=== PATIENT | female | born 1980 | race African-American/Black ===

== ENCOUNTER 2016-12-12 17:04 | Emergency (ER) | payer OTHER ==
[~2016-12-12] VITALS: Ht 160 cm; Wt 79.4 kg
[2016-12-12] MEDS ORDERED: ACETAMINOPHEN 325 MG TAB PO ONE (18:30)
[2016-12-12] MEDS ORDERED: cefTRIAXone SOD 1,000 MG VL IM ONE (18:45)
[2016-12-12] MEDS ORDERED: LIDOCAINE 1% HCL (LOCAL ANESTH.) INJ 20ML MDV ONE (20:05)
[2016-12-12] MEDS ORDERED: LIDOCAINE 1% HCL (LOCAL ANESTH.) INJ 20ML MDV IJ ONE (20:30)
[2016-12-12 20:50] VITALS: BP 144/72
== END 2016-12-12 21:09 ==
LOC: ER 17:09
DX: L03.115 Cellulitis of right lower limb (principal)
CPT/HCPCS: 81025; 93971; 96372; 99284; J0696; J2001

== ENCOUNTER 2017-10-26 16:57 | Inpatient (IN) | payer OTHER ==
[~2017-10-26] VITALS: Ht 160 cm; Wt 77.4 kg
[2017-10-26 17:45] LABS: Urine Bacteria FEW /hpf (None Seen); Urine Blood Negative /uL (Negative); Urine Mucus FEW (None Seen); Urine Specific Gravity 1.016 (1.001-1.035); Urine WBC <1 /hpf (0 - 5)
[2017-10-26 17:56] LABS: Basophils # (auto) 0.1 uL; Basophils % (auto) 1.3 % (0.0-2.0); Eosinophils # (auto) 0 uL; Eosinophils % (auto) 0.8 % (0.0-7.0); Hematocrit 40.3 % (36.0-46.0); Hemoglobin 13.8 g/dL (12.2-16.2); Lymphocytes # (auto) 1.5 uL; Lymphocytes % (auto) 34.7 % (10.0-50.0); Mean Corpuscular Hemoglobin 31.3 pg (28.0-32.0); Mean Corpuscular Hgb Conc. 34.3 g/dL (32.0-36.0); Mean Corpuscular Volume 91.4 fL (80.0-100.0); Monocytes # (auto) 0.2 uL; Monocytes % (auto) 5.8 % (0.0-12.0); Neutrophils # (auto) 2.4 uL; Neutrophils % (auto) 57.4 % (37.0-80.0); Nucleated Red Blood Cells % 0.1 %; Platelet Count (auto) 246 10^3/uL (140-450); Red Blood Cells 4.41 10^6/uL (4.0-5.20); Red Cell Distribution Width 14.2 % (11.8-14.3); White Blood Cell 4.3 10^3/uL (4.4-10.8)
[2017-10-26 18:16] LABS: Albumin 3.8 g/dL (3.4-5.0); BUN/Creatinine Ratio 8.8; Bilirubin, Total 4.4 mg/dL (0.2-1.0); Calcium 9.1 mg/dL (8.5-10.1); Potassium 3.7 mmol/L (3.5-5.1); Total Protein 8.1 g/dL (6.4-8.2)
[2017-10-26] MEDS ORDERED: PANTOPRAZOLE 40 MG/10 ML VIAL IV STA (18:35)
[2017-10-26] MEDS ORDERED: ONDANSETRON HCL 4 MG/2 ML VIAL IV ONE (18:45)
[2017-10-26] MEDS ORDERED: MORPHINE SULF INJ 2 MG/ML SYRINGE 1ML IV ONE (18:45)
[2017-10-26] MEDS: SODIUM CHLORIDE 0.9% 1,000 ML IVB ONE ×2 (19:50→20:12)
[2017-10-26] MEDS ORDERED: MORPHINE SULFATE 4 MG/ML SYR/VIAL IV PRN (23:00)
[2017-10-26] MEDS ORDERED: D5W/SOD CHL 0.45% 1,000 ML IV ONE (23:00)
[2017-10-27] MEDS ORDERED: ONDANSETRON HCL 4 MG/2 ML VIAL IV ONE
[2017-10-27] MEDS ORDERED: MORPHINE SULFATE 4 MG/ML SYR/VIAL IV ONE
[2017-10-27] MEDS ORDERED: ONDANSETRON HCL 4 MG/2 ML VIAL IV PRN (01:00)
[2017-10-27] MEDS ORDERED: ALUM & MAG HYDROX-SIMETH LIQ(MAALOX) 30 ML PO ONE (01:45)
[2017-10-27 06:49] LABS: Basophils # (auto) 0 uL; Basophils % (auto) 0.7 % (0.0-2.0); Eosinophils # (auto) 0 uL; Eosinophils % (auto) 1.2 % (0.0-7.0); Hematocrit 37.9 % (36.0-46.0); Lymphocytes # (auto) 1.4 uL; Mean Corpuscular Hemoglobin 31.6 pg (28.0-32.0); Mean Corpuscular Hgb Conc. 34.2 g/dL (32.0-36.0); Mean Corpuscular Volume 92.4 fL (80.0-100.0); Monocytes # (auto) 0.2 uL; Monocytes % (auto) 6.9 % (0.0-12.0); Neutrophils # (auto) 1.5 uL; Neutrophils % (auto) 47.2 % (37.0-80.0); Nucleated Red Blood Cells % 0.4 %; Platelet Count (auto) 213 10^3/uL (140-450); Red Cell Distribution Width 14.5 % (11.8-14.3); White Blood Cell 3.1 10^3/uL (4.4-10.8)
[2017-10-27 07:05] LABS: Albumin 3.2 g/dL (3.4-5.0); BUN/Creatinine Ratio 7.7; Bilirubin, Total 2.1 mg/dL (0.2-1.0); Calcium 8.5 mg/dL (8.5-10.1); Potassium 4.1 mmol/L (3.5-5.1); Total Protein 7.1 g/dL (6.4-8.2)
[2017-10-27 09:11] LABS: INR 0.93 (0.9-1.15); Partial Thromboplastin Time 28.7 sec (23.78-33.04)
[2017-10-27] MEDS ORDERED: MIDAZOLAM HCL 1MG/1ML-2 ML VIAL ONE (09:50)
[2017-10-27] MEDS ORDERED: ROCURONIUM 10MG/ML 10ML VIAL IV ONE (09:51)
[2017-10-27] MEDS ORDERED: PROPOFOL 10 MG/ML 20 ML IV ONE (09:52)
[2017-10-27] MEDS ORDERED: metroNIDAZOLE 500MG/100ML 100 ML IV SCH (10:00)
[2017-10-27] MEDS ORDERED: LEVOFLOXACIN 500MG 100 ML IV SCH (10:00)
[2017-10-27] MEDS ORDERED: ceFOXitin 2GM/100ML 100 ML IV ONE (10:22)
[2017-10-27] MEDS ORDERED: SUCCINYLCHOLINE CHLORIDE 20 MG/ML 10ML VIAL IV ONE (10:28)
[2017-10-27] MEDS ORDERED: LIDOCAINE 1% (LOCAL ANESTH.) PF 5ml SDV ONE (10:28)
[2017-10-27] MEDS: ONDANSETRON HCL 4 MG/2 ML VIAL IV ONE ×2 (10:30→11:54)
[2017-10-27] MEDS ORDERED: NALOXONE HCL 0.4 MG/ML VIAL IV PRN (10:30)
[2017-10-27] MEDS ORDERED: BUPIVACAINE HCL 50 ML ONE (10:32)
[2017-10-27] MEDS ORDERED: LIDOCAINE 1% HCL (LOCAL ANESTH.) INJ 20ML MDV ONE (10:32)
[2017-10-27] MEDS ORDERED: fentaNYL CITRATE 100 MCG/2 ML VL ONE (10:48)
[2017-10-27] MEDS ORDERED: KETOROLAC TROMETH 30 MG/ML 1ML VIAL ONE (11:17)
[2017-10-27] MEDS ORDERED: NEOSTIGMINE 1 MG/ML INJ (10mg/10ML VIAL) ONE (11:19)
[2017-10-27] MEDS ORDERED: GLYCOPYRROLATE 0.2 MG/ML 1ML VIAL ONE (11:19)
[2017-10-27] MEDS: MORPHINE SULF INJ 2 MG/ML SYRINGE 1ML IV PRN ×3 (11:54→16:33)
[2017-10-27] MEDS ORDERED: ENOXAPARIN SOD 40 MG/0.4 ML SYRINGE SC ONE (12:15)
[2017-10-27] MEDS: SODIUM CHLORIDE 0.9% 1,000 ML IV SCH (12:56)
[2017-10-27 13:00] VITALS: BP 162/90
[2017-10-27] MEDS: PIPERACILLIN-TAZOB 3.375GM 100 ML IV SCH ×2 (13:27→17:30)
[2017-10-27] MEDS: PANTOPRAZOLE 40 MG TAB PO SCH (13:27)
[2017-10-27 16:48] VITALS: BP 140/90
[2017-10-27] MEDS: OXYCODONE W/ ACETAMINOPHEN 5/325MG TABLET PO PRN ×2 (18:39→22:56)
[2017-10-27 21:56] VITALS: BP 141/79
[2017-10-28] MEDS: PIPERACILLIN-TAZOB 3.375GM 100 ML IV SCH ×4 (00:20→18:23)
[2017-10-28] MEDS: PROPRANOLOL HCL 20 MG TAB PO ONE ×2 (00:20→00:35)
[2017-10-28] MEDS: SODIUM CHLORIDE 0.9% 1,000 ML IV SCH ×2 (00:20→14:10)
[2017-10-28] MEDS: MORPHINE SULF INJ 2 MG/ML SYRINGE 1ML IV PRN ×3 (01:08→22:21)
[2017-10-28] MEDS: OXYCODONE W/ ACETAMINOPHEN 5/325MG TABLET PO PRN ×3 (04:36→18:51)
[2017-10-28 05:48] VITALS: BP 108/71
[2017-10-28 07:18] LABS: Calcium 8.3 mg/dL (8.5-10.1); Potassium 4.1 mmol/L (3.5-5.1)
[2017-10-28 07:20] LABS: BUN/Creatinine Ratio 7.5
[2017-10-28 07:23] LABS: Bilirubin, Total 4.4 mg/dL (0.2-1.0); Total Protein 6.7 g/dL (6.4-8.2)
[2017-10-28 08:57] VITALS: BP 124/67
[2017-10-28] MEDS: PANTOPRAZOLE 40 MG TAB PO SCH (09:23)
[2017-10-28] MEDS: ENOXAPARIN SOD 40 MG/0.4 ML SYRINGE SC SCH (09:28)
[2017-10-28 09:34] LABS: Hepatitis B Surface Antibody Positive
[2017-10-28 10:09] LABS: Hepatitis A Total Antibody Negative
[2017-10-28 10:21] LABS: Hepatitis B Core IgM Negative; Hepatitis B Core Total AB Negative; Hepatitis C Antibody Negative (Negative)
[2017-10-28 12:25] VITALS: BP 127/73
[2017-10-28] MEDS: ONDANSETRON HCL 4 MG/2 ML VIAL IV PRN (12:52)
[2017-10-28 16:58] VITALS: BP 133/66
[2017-10-28 22:00] VITALS: BP 146/88
[2017-10-29] MEDS: ONDANSETRON HCL 4 MG/2 ML VIAL IV PRN (00:04)
[2017-10-29] MEDS: OXYCODONE W/ ACETAMINOPHEN 5/325MG TABLET PO PRN ×2 (00:04→16:50)
[2017-10-29] MEDS: PIPERACILLIN-TAZOB 3.375GM 100 ML IV SCH ×4 (00:04→18:18)
[2017-10-29] MEDS: MORPHINE SULF INJ 2 MG/ML SYRINGE 1ML IV PRN ×6 (01:14→21:02)
[2017-10-29] MEDS: SODIUM CHLORIDE 0.9% 1,000 ML IV SCH ×2 (03:21→16:50)
[2017-10-29 05:30] VITALS: BP 129/77
[2017-10-29 06:55] LABS: Albumin 3.2 g/dL (3.4-5.0); BUN/Creatinine Ratio 6.6; Calcium 8.8 mg/dL (8.5-10.1); Potassium 3.9 mmol/L (3.5-5.1); Total Protein 7.1 g/dL (6.4-8.2)
[2017-10-29 08:46] VITALS: BP 127/76
[2017-10-29] MEDS ORDERED: IOHEXOL 300 MG/ML 100ML BOTTLE IJ ONE (09:32)
[2017-10-29] MEDS: ENOXAPARIN SOD 40 MG/0.4 ML SYRINGE SC SCH (10:00)
[2017-10-29] MEDS: PANTOPRAZOLE 40 MG TAB PO SCH (10:00)
[2017-10-29] MEDS ORDERED: LIDOCAINE 1% HCL (LOCAL ANESTH.) INJ 20ML MDV ONE (10:11)
[2017-10-29] MEDS ORDERED: MIDAZOLAM HCL 1MG/1ML-2 ML VIAL ONE (10:14)
[2017-10-29] MEDS ORDERED: PROPOFOL 10 MG/ML 20 ML IV ONE ×3 (10:15→11:02)
[2017-10-29] MEDS ORDERED: fentaNYL CITRATE 100 MCG/2 ML VL ONE ×2 (10:31→11:08)
[2017-10-29] MEDS ORDERED: MORPHINE SULF INJ 2 MG/ML SYRINGE 1ML IV PRN (10:45)
[2017-10-29] MEDS ORDERED: NALOXONE HCL 0.4 MG/ML VIAL IV PRN (10:45)
[2017-10-29] MEDS ORDERED: ONDANSETRON HCL 4 MG/2 ML VIAL IV ONE (10:45)
[2017-10-29] MEDS ORDERED: LACTULOSE 20Gm/30ML SOLN PO ONE (14:30)
[2017-10-29 17:12] VITALS: BP 130/82
[2017-10-29 22:00] VITALS: BP 120/76
[2017-10-30] MEDS: PIPERACILLIN-TAZOB 3.375GM 100 ML IV SCH ×4 (00:14→18:11)
[2017-10-30] MEDS: MORPHINE SULF INJ 2 MG/ML SYRINGE 1ML IV PRN ×2 (02:20→03:57)
[2017-10-30] MEDS: ONDANSETRON HCL 4 MG/2 ML VIAL IV PRN ×2 (02:20→03:57)
[2017-10-30 05:00] VITALS: BP 157/91
[2017-10-30] MEDS: SODIUM CHLORIDE 0.9% 1,000 ML IV SCH ×2 (06:26→22:16)
[2017-10-30 06:42] LABS: Albumin 3.1 g/dL (3.4-5.0); Bilirubin, Total 1.6 mg/dL (0.2-1.0); Calcium 8.7 mg/dL (8.5-10.1); Potassium 3.9 mmol/L (3.5-5.1); Total Protein 7.4 g/dL (6.4-8.2)
[2017-10-30] MEDS: OXYCODONE W/ ACETAMINOPHEN 5/325MG TABLET PO PRN ×4 (06:45→22:25)
[2017-10-30 09:00] VITALS: BP 139/81
[2017-10-30] MEDS: ENOXAPARIN SOD 40 MG/0.4 ML SYRINGE SC SCH (10:58)
[2017-10-30] MEDS: PANTOPRAZOLE 40 MG TAB PO SCH (10:58)
[2017-10-30 13:00] VITALS: BP 121/70
[2017-10-30 17:53] VITALS: BP 130/78
[2017-10-30] MEDS: Pro-Stat SF 30ml Vanilla PO SCH (18:00)
[2017-10-30 21:44] VITALS: BP 120/70
[2017-10-31] MEDS: PIPERACILLIN-TAZOB 3.375GM 100 ML IV SCH ×4 (00:03→18:27)
[2017-10-31 04:54] VITALS: BP 116/64
[2017-10-31] MEDS: OXYCODONE W/ ACETAMINOPHEN 5/325MG TABLET PO PRN ×3 (06:49→19:37)
[2017-10-31 07:30] LABS: Potassium 4.1 mmol/L (3.5-5.1)
[2017-10-31 07:35] LABS: Albumin 2.9 g/dL (3.4-5.0); BUN/Creatinine Ratio 13.7; Calcium 8.7 mg/dL (8.5-10.1)
[2017-10-31 07:38] LABS: Bilirubin, Total 1.2 mg/dL (0.2-1.0); Total Protein 6.9 g/dL (6.4-8.2)
[2017-10-31 08:00] VITALS: BP 120/68
[2017-10-31] MEDS: Pro-Stat SF 30ml Vanilla PO SCH ×2 (08:00→18:00)
[2017-10-31 09:00] VITALS: BP 114/69
[2017-10-31] MEDS: PANTOPRAZOLE 40 MG TAB PO SCH (10:20)
[2017-10-31] MEDS: ENOXAPARIN SOD 40 MG/0.4 ML SYRINGE SC SCH (10:20)
[2017-10-31] MEDS: FLUCONAZOLE 100 MG TAB PO SCH (10:20)
[2017-10-31] MEDS: SODIUM CHLORIDE 0.9% 1,000 ML IV SCH (12:00)
[2017-10-31 13:00] VITALS: BP 120/63
[2017-10-31 17:11] VITALS: BP 112/77
[2017-10-31 22:00] VITALS: BP 119/72
[2017-11-01] MEDS: SODIUM CHLORIDE 0.9% 1,000 ML IV SCH ×2 (00:43→10:56)
[2017-11-01] MEDS: PIPERACILLIN-TAZOB 3.375GM 100 ML IV SCH ×3 (00:44→12:14)
[2017-11-01 04:54] VITALS: BP 126/74
[2017-11-01] MEDS: OXYCODONE W/ ACETAMINOPHEN 5/325MG TABLET PO PRN ×2 (05:30→12:14)
[2017-11-01 06:43] LABS: Albumin 2.9 g/dL (3.4-5.0); BUN/Creatinine Ratio 17.3; Calcium 8.9 mg/dL (8.5-10.1); Potassium 4.2 mmol/L (3.5-5.1)
[2017-11-01 06:45] LABS: Bilirubin, Total 0.9 mg/dL (0.2-1.0); Total Protein 7.3 g/dL (6.4-8.2)
[2017-11-01] MEDS: Pro-Stat SF 30ml Vanilla PO SCH (08:00)
[2017-11-01 09:03] VITALS: BP 117/76
[2017-11-01] MEDS: ENOXAPARIN SOD 40 MG/0.4 ML SYRINGE SC SCH (10:00)
[2017-11-01] MEDS: FLUCONAZOLE 100 MG TAB PO SCH (10:11)
[2017-11-01] MEDS: PANTOPRAZOLE 40 MG TAB PO SCH (10:11)
[2017-11-01] MEDS ORDERED: LEVO500T21 PO (12:04)
[2017-11-01 13:00] VITALS: BP 115/60
[2017-11-01 13:22] VITALS: BP 115/60
== END 2017-11-01 16:28 | DRG 419 ==
LOC: ER 17:00 → OVERFLOW 17:01 → EEVIPCON 17:01 → EAST 10-27 12:56
PROVIDERS: ADMIT Internal Medicine; ATTEND Internal Medicine
PROC: 0FT44ZZ Resection of Gallbladder, Percutaneous Endoscopic Approach (ICD-10-PCS; principal; 2017-10-27 10:27)
PROC: 0F798ZZ Dilation of Common Bile Duct, Via Natural or Artificial Opening Endoscopic (ICD-10-PCS; 2017-10-29)
PROC: 0FC98ZZ Extirpation of Matter from Common Bile Duct, Via Natural or Artificial Opening Endoscopic (ICD-10-PCS; 2017-10-29)
PROC: BF141ZZ Fluoroscopy of Gallbladder, Bile Ducts and Pancreatic Ducts using Low Osmolar Contrast (ICD-10-PCS; 2017-10-29)
DX: K80.63 Calculus of gallbladder and bile duct with acute cholecystitis with obstruction (principal); K75.9 Inflammatory liver disease, unspecified; K59.00 Constipation, unspecified; K83.8 Other specified diseases of biliary tract; K76.0 Fatty (change of) liver, not elsewhere classified; N76.0 Acute vaginitis
CPT/HCPCS: 36415; 43264; 71045; 74018; 74181; 76001; 76705; 80053; 81001; 81025; 82150; 83690; 85025; 85610; 85730; 86704; 86705; 86706; 86708; 86803; 93005; 94761; 96361; 96372; 96374; 96375; A6257; C9113; J0330; J0694; J1885; J2001; J2250; J2405; J2543; J2704; J3490